=== PATIENT | male | born 1985 | race Two or more races ===

== ENCOUNTER 2017-04-10 04:32 | Emergency (ER) | payer SELFPAY ==
[~2017-04-10] VITALS: Ht 165.1 cm; Wt 60.3 kg
--- NOTE | ~2017-04-10 | CR21 ---
[facility] A Service of [facility] RADIOLOGY TEXT RESULTS PATIENT: RADHA PIÑA LOCATION: [facility] : 85 UNIT #: [id number] AGE: [address]: Modesto Avalos MD SEX: M ORDER DR: [id number] [facility] [address] [place], [place] [address] [id number] MR#: [id number] Acc #: [id number] NAME: RADHA PIÑA : 1985 SEX: M STUDY DATE/TIME: 04/10/2017 5:02 UNIT: [facility] ROOM: STUDY DESCRIPTION: CR Ankle Min 3 Views Rt Attending Physician: Modesto Avalos M.D. Ordering Physician: Modesto Avalos M.D. Primary Care Physician: Obdulio Medel M.D. MEDICAL IMAGING REPORT This report is preliminary unless electronic signature is present EXAM Right ankle series. INDICATIONS Right ankle pain and swelling today. PROCEDURE Three views of the right ankle. COMPARISON None. FINDINGS Ankle mortise intact. No fracture or dislocation. IMPRESSION No acute findings. Dictated by... Jorge Cartagena M.D. THIS IS AN ELECTRONICALLY VERIFIED REPORT Jorge Cartagena M.D. at 04/10/2017 10:03 PM YAZAN/lisa TD: 04/10/2017 21:15 JOB #: [id number] MEDICAL IMAGING REPORT Page 1 of 1 COPY
[~2017-04-10 04:32] MED LIST: CLEOCIN150 M2 PO; LORTAB 5-325 M1 EACH PO; ROCEPHIN2 G/VIAL INJ; TYLENOL325 M1 PO
== END 2017-04-10 06:10 | disposition home or self-care (01) ==
LOC: CED 04:32
DX: M25.571 Pain in right ankle and joints of right foot (principal); F17.200 Nicotine dependence, unspecified, uncomplicated
CPT/HCPCS: 29540; 73610; 99283